=== PATIENT | male | born 1960 | race Caucasian/White ===

== ENCOUNTER 2021-04-13 13:50 | Emergency (ER) | payer BC, SELFPAY ==
[2021-04-13 14:08] VITALS: BP 136/91; PULSE 83; RESP 18; TEMP 36.9; O2SAT 97
--- NOTE | 2021-04-13 14:33 | ED.LOWEXIN ---
HPI - Extremity Injury (Lower) General Chief Complaint: Extremity Injury, Lower Stated Complaint: Lt ft pain Time Seen by Provider: 04/13/21 14:20 Source: patient and RN notes reviewed Mode of arrival: ambulatory Limitations: no limitations History of Present Illness HPI Narrative: Patient presents today complaining of left foot pain x4 days. Reports it has been red and swollen as well. States pain started out in the arch and has spread. Currently rates pain 6/10. Patient takes ibuprofen daily for chronic pain. He is also on 5 mg of prednisone daily for rheumatological condition. He does report some tingling in his foot, but states this is not new and is currently not worse than normal. Pain increases with weightbearing. Denies any injury or trauma. MD complaint: other (Left foot pain) Related Data Home Medications Medication Instructions Recorded Confirmed diltiazem HCl [DILT-XR] 240 mg PO DAILY 04/13/21 04/13/21 diphenhydramine HCl [Benadryl] 25 mg PO TID 04/13/21 04/13/21 hydroxychloroquine 200 mg PO DAILY 04/13/21 04/13/21 ibuprofen 600 mg PO BID 04/13/21 04/13/21 prednisone 5 mg PO BID 04/13/21 04/13/21 propranolol 20 mg PO DAILY 04/13/21 04/13/21 Allergies Allergy/AdvReac Type Severity Reaction Status Date / Time Sulfa (Sulfonamide AdvReac Intermediate Nausea and Verified 04/13/21 14:23 Antibiotics) Vomiting Review of Systems Review of Systems: Narrative: CONSTITUTIONAL: Denies body aches, fever, chills, or sweats. EYES: Denies visual changes, redness, or discharge. ENT: Denies rhinorrhea, congestion, sore throat, or otalgia. CARDIOVASCULAR: Denies chest pain, palpitations, or edema. RESPIRATORY: Denies cough or dyspnea. GASTROINTESTINAL: Denies abdominal pain, nausea, vomiting, or diarrhea. GENITOURINARY: Denies dysuria or hematuria. SKIN: Denies rash, itching, or wounds. MUSCULOSKELETAL: Denies back pain, or myalgia.+ Left foot pain NEUROLOGIC: Denies headache, numbness, tingling, or weakness. PSYCH: Denies depression or anxiety. [facility] Past Medical History Medical History (Updated 04/13/21 @ 15:28 by Beth Monte, EDUARDO, ) Hypertension Social History Social History Gender identity (if verbalized by the patient): Male Comments At time of signature, I have reviewed and agree with nursing past medical, surgical, social and family history unless otherwise noted. Please see nursing chart for further information. There is no relevant family history pertinent to the presenting complaint Exam Narrative: Exam Narrative: GENERAL: Well-appearing, well-nourished, and in no acute distress. HEAD: Normocephalic, atraumatic. EYES: EOMI. No redness or drainage. Conjunctivae normal. ENT: Mucous membranes pink and moist. NECK: Normal AROM. CHEST: No respiratory distress. EXTREMITIES: Left foot: Scant to mild erythema at the 1st MTP and base of toes 2-4 with mild edema. Tender to these areas as well. Patient also has some scant to mild edema and erythema just distal to the lateral malleolus with tenderness to palpation to same. Distal sensation intact. Capillary refill normal. Pedal pulse normal. Full range of motion of the ankle and all toes. Calf is a normal color. Calf is nontender. -Homans. Plantar rashes nontender. Right foot normal. SKIN: Warm, dry, no rash. Capillary refill normal. Normal skin turgor. NEURO: No focal deficits. Alert and oriented x3. Gait steady. PSYCH: Normal affect. No signs of depression or anxiety. Course Vital Signs Vital signs: Vital Signs Temperature 98.4 F 04/13/21 14:08 Pulse Rate 83 04/13/21 14:08 Respiratory Rate 18 04/13/21 14:08 Blood Pressure 136/91 H 04/13/21 14:08 Pulse Oximetry 97 04/13/21 14:08 Temperature 98.4 F 04/13/21 14:08 Pulse Rate 83 04/13/21 14:08 Respiratory Rate 18 04/13/21 14:08 Blood Pressure 136/91 H 04/13/21 14:08 Pulse Oximetry 9
== END 2021-04-13 14:45 | disposition home or self-care (01) ==
PROVIDERS: Emergency Provider Nurse Practitioner; PCP Family Medicine
DX: M10.9 Gout, unspecified (principal); I10 Essential (primary) hypertension
CPT/HCPCS: 99203; G0463